=== PATIENT | male | born 1990 | race African-American/Black ===

== ENCOUNTER 2022-04-13 12:43 | Emergency (ER) | payer MEDICAID ==
[~2022-04-13] VITALS: Ht 182.9 cm; Wt 91.0 kg
[2022-04-13 17:52] LABS: CLARITY URINE CLEAR (CLEAR); COLOR URINE YELLOW (YELLOW); KETONES URINE TRACE (NEGATIVE); LEUKOCYTE ESTERASE URINE NEGATIVE (NEGATIVE); NITRITE URINE NEGATIVE (NEGATIVE); OCCULT BLOOD URINE NEGATIVE (NEGATIVE); PROTEIN URINE TRACE (NEGATIVE); SPECIFIC GRAVITY URINE 1.034 (1.005-1.030)
[2022-04-13 19:39] VITALS: BP 129/84
== END 2022-04-13 19:40 | disposition home or self-care (01) ==
LOC: ER 12:43
DX: R30.0 Dysuria (principal); E86.0 Dehydration
CPT/HCPCS: 81003; 99283